=== PATIENT | male | born 1950 | race Caucasian/White ===

== ENCOUNTER → 2016-08-23 | Outpatient (CLI) | payer BC ==
[2010-09-26 18:02] VITALS: BP 119/91
[2016-08-23 14:57] LABS: HEMOGLOBIN A1C 5.84 % (4.2-6.0)
== END ==
LOC: LAB 09:10
DX: E11.9 Type 2 diabetes mellitus without complications (principal); I10 Essential (primary) hypertension; E66.01 Morbid (severe) obesity due to excess calories
CPT/HCPCS: 83036; 84443